=== PATIENT | female | born 1975 | race Caucasian/White ===

== ENCOUNTER → 2025-04-28 | Outpatient (CLI) | payer OTHER, SELFPAY ==
[2025-04-28 13:14] LABS: Hematocrit 37.5 % (37-47); Hemoglobin 12.3 g/dL (12.0-15.0); Immature Granulocytes Count 0.030 X10^3/uL (0.0-0.0); Mean Corp Hgb Conc 32.8 g/dL (32-36); Mean Corpuscular Volume 85.2 fL (81-99); Mean Platelet Vol. 10.2 fl (6.2-12.0); NRBC Flagged by Analyzer 0 % (0-5); Platelet Count 318 K/mm3 (150-450); RBC Distribution Width CV 13.6 % (11.6-14.6); RBC Distribution Width SD 42.8 fl (35.1-43.9); Red Blood Count 4.40 M/mm3 (4.2-5.4); White Blood Count 6.3 K/mm3 (4.4-11.0)
[2025-04-28 13:35] LABS: AST(SGOT) 21 U/L (<=31); Alanine Aminotransfer ALT/SGPT 19 U/L (<=34); Albumin, Serum 4.0 g/dL (3.5-5.0); Alkaline Phosphatase 67 U/L (35-104); Anion Gap 8 (5-15); BUN 11 mg/dL (4-19); BUN/Creat Ratio 17.0 RATIO (10-20); CORTISOL AM 6.39 ug/dL (6.02-18.40); Calcium,Total 9.0 mg/dL (7.6-11.0); Carbon Dioxide 26.6 mmol/L (21.0-32.0); Chloride 102 mmol/L (98-108); Ferritin 43 ng/mL (22-378); Free T3 2.8 pg/mL (2.18-3.98); Globulin 2.8 g/dL (2.2-4.2); Glucose 93 mg/dL (70-99); Iron 61 ug/dL (50-170); Iron Binding Capacity,Total 301 ug/dL (250-450); Iron Binding Capacity,Unsat 240 ug/dL (228-428); Potassium 4.3 mmol/L (3.3-5.1)
[2025-04-30 04:07] LABS: PROGESTERONE 1.3 ng/mL (.)
== END | disposition home or self-care (01) ==
PROVIDERS: Referring Provider Nurse Practitioner Family; Visit Provider Nurse Practitioner Family
DX: N39.0 Urinary tract infection, site not specified (principal); F41.9 Anxiety disorder, unspecified; N83.299 Other ovarian cyst, unspecified side; M13.80 Other specified arthritis, unspecified site; J45.998 Other asthma; R12 Heartburn
CPT/HCPCS: 80053; 82533; 82627; 82670; 82728; 83540; 83550; 84144; 84403; 84439; 84443; 84481; 85025; 82626